=== PATIENT | male | born 1930 | race Caucasian/White ===

== ENCOUNTER 2017-02-25 10:34 | Inpatient (IN) | payer OTHER ==
[~2017-02-25] VITALS: Ht 170.2 cm; Wt 69.5 kg
[~2017-02-25 10:34] MED LIST: LISINOPRIL5 MG
[2017-02-25 11:46] LABS: HEMATOCRIT 42.7 % (38.0-50.0); MCH 32.4 PG (29.0-34.0); MCHC 34.9 G/DL (30.0-36.0); MCV 92.8 FL (86-99); MEAN PLAT.VOLUME 11.3 uM^3 (9.0-12.4); PLATELET COUNT 224 K/uL (156-360); RBC DIS.WIDTH-CV 12.3 % (11.8-14.6); RBC DIS.WIDTH-SD 42.1 % (39-53)
[2017-02-25 11:52] LABS: CHLORIDE 97 mEq/L (99-109); POTASSIUM 4.8 mEq/L (3.7-5.4); SODIUM 130 mEq/L (136-147)
[2017-02-25 11:54] LABS: GLUCOSE 108 mg/dL (70-99)
[2017-02-25 11:55] LABS: ANION GAP 13 MEQ/L (2-14)
[2017-02-25 11:58] LABS: GFR ESTIMATE (CALCULATED) > 59 mL/min/; UREA NITROGEN (BUN) 12 mg/dL (9-23)
[2017-02-25 11:59] LABS: TROP-I INTERPRETATION NEGATIVE; TROPONIN-I < 0.01 ng/mL (0.0-0.30)
[2017-02-25 12:26] LABS: ADD MIUA? NO; BILIRUBIN NEGATIVE; BLOOD NEGATIVE; COLOR YELLOW ((YELLOW)); GLUCOSE (STRIP) NEGATIVE; KETONES NEGATIVE; LEUKOCYTES NEGATIVE; NITRITE NEGATIVE; PROTEIN (STRIP) NEGATIVE; SPECIFIC GRAVITY 1.008 (1.000-1.030); UCUL ADDED? NO; UROBILINOGEN 0.2 MG/DL (0.2-1.0)
[2017-02-25] MEDS ORDERED: WARFARIN SODIU2.5 MG PO ×2 (12:57)
[2017-02-25] MEDS ORDERED: POTASSIUM-9999 MG PO (12:58)
[2017-02-25] MEDS ORDERED: ASPIR 8181 M1 PO (12:58)
[2017-02-25] MEDS ORDERED: TYLENOL REGULA325 MG PO (12:59)
[2017-02-25 13:40] LABS: INTER. NORMALIZED RATIO 1.9; PROTHROMBIN TIME 20.1 (9.2-11.2)
[2017-02-25 13:47] LABS: HDL CHOLESTEROL 38 MG/DL (Desirable>=40); LDL CHOLESTEROL 124 mg/dL (Desirable<100); NON-HDL CHOLESTEROL 145 mg/dL (Desirable<160); TOTAL CHOLESTEROL 183 mg/dL (Desirable<200); TRIGLYCERIDES 105 MG/DL (Normal: <150)
[2017-02-25 14:13] LABS: Estimated Average Glucose 126 mg/dL (70-123)
[2017-02-25 17:10] VITALS: BP 119/82
[2017-02-25 20:00] VITALS: BP 98/71
[2017-02-26] VITALS: BP 134/81
[2017-02-26 04:00] VITALS: BP 126/83
[2017-02-26 06:48] LABS: HEMATOCRIT 42.7 % (38.0-50.0); MCH 31.9 PG (29.0-34.0); MCHC 34.2 G/DL (30.0-36.0); MCV 93.2 FL (86-99); MEAN PLAT.VOLUME 10.5 uM^3 (9.0-12.4); PLATELET COUNT 244 K/uL (156-360); RBC DIS.WIDTH-CV 12.5 % (11.8-14.6); RBC DIS.WIDTH-SD 43.4 % (39-53); RED BLOOD COUNT 4.58 M/uL (4.00-5.50); WHITE BLOOD COUNT 6.4 K/uL (4.1-10.2)
[2017-02-26 06:57] LABS: INTER. NORMALIZED RATIO 1.8; PROTHROMBIN TIME 18.7 (9.2-11.2)
[2017-02-26 07:10] LABS: ANION GAP 8 MEQ/L (2-14); CHLORIDE 97 MEQ/L (99-109); GFR ESTIMATE (CALCULATED) > 59 mL/min/; GLUCOSE 83 mg/dL (70-99); POTASSIUM 4.4 MEQ/L (3.7-5.4); SAMPLE HEMOLYSIS CHECK 0; SAMPLE ICTERIC CHECK 0; SAMPLE LIPEMIA CHECK 0; SODIUM 134 MEQ/L (136-147); UREA NITROGEN (BUN) 15 mg/dL (9-23)
[2017-02-26 07:48] VITALS: BP 134/91
[2017-02-26 11:24] VITALS: BP 141/90
[2017-02-26 15:21] VITALS: BP 140/88
[2017-02-26 19:20] VITALS: BP 140/88
[2017-02-27 00:32] VITALS: BP 179/96
[2017-02-27 06:41] LABS: BASOPHIL COUNT 0.1 K/uL (0-0.1); EOSINOPHIL (%) 3.9 % (0-5); EOSINOPHIL COUNT 0.3 K/uL (0-0.3); HEMATOCRIT 45.3 % (38.0-50.0); IMMATURE GRANULOCYTE (%) 0.4 % (0.0-0.7); INSTRUMENT ABS NEUTROPHIL CT 4.8 K/uL; LYMPHOCYTE COUNT 0.8 K/uL (1.0-2.8); MCHC 34.2 G/DL (30.0-36.0); MCV 93.4 FL (86-99); MONOCYTE (%) 14.1 % (3-12); NEUTROPHIL (%) 68.5 % (45-76); NEUTROPHIL COUNT 4.8 K/uL (1.8-6.4); PLATELET COUNT 259 K/uL (156-360); RBC DIS.WIDTH-CV 12.6 % (11.8-14.6); RBC DIS.WIDTH-SD 43.5 % (39-53); RED BLOOD COUNT 4.85 M/uL (4.00-5.50)
[2017-02-27 06:44] LABS: INTER. NORMALIZED RATIO 2.1; PROTHROMBIN TIME 21.6 (9.2-11.2)
[2017-02-27 07:02] LABS: ANION GAP 9 MEQ/L (2-14); CHLORIDE 97 MEQ/L (99-109); GFR ESTIMATE (CALCULATED) > 59 mL/min/; GLUCOSE 96 mg/dL (70-99); POTASSIUM 4.7 MEQ/L (3.7-5.4); SAMPLE HEMOLYSIS CHECK 0; SAMPLE ICTERIC CHECK 0; SAMPLE LIPEMIA CHECK 0; SODIUM 135 MEQ/L (136-147); UREA NITROGEN (BUN) 15 mg/dL (9-23)
[2017-02-27 08:32] VITALS: BP 150/113
[2017-02-27 12:50] VITALS: BP 148/86
== END 2017-02-27 13:15 | disposition home or self-care (01) | DRG 69 ==
LOC: EME → EDBD 10:34 → EDOF 12:46 → 5SOUTH 12:46
PROVIDERS: Emergency Medicine; Internal Medicine; Psychiatry & Neurology Neurology
DX: G45.1 Carotid artery syndrome (hemispheric) (principal); R53.1 Weakness; I48.1 Persistent atrial fibrillation; Z79.01 Long term (current) use of anticoagulants; E78.5 Hyperlipidemia, unspecified; E87.1 Hypo-osmolality and hyponatremia; R51 Headache; G51.0 Bell's palsy; Z86.73 Personal history of transient ischemic attack (TIA), and cerebral infarction without residual deficits; R47.81 Slurred speech; R20.0 Anesthesia of skin; H91.90 Unspecified hearing loss, unspecified ear; T45.515A Adverse effect of anticoagulants, initial encounter
CPT/HCPCS: 36415; 70450; 70551; 71010; 80048; 80061; 81003; 83036; 84484; 85025; 85027; 85610; 85651; 85730; 86141; 93005; 93306; 93880; 99281; 99285